=== PATIENT | female | born 2000 | race Caucasian/White ===

== ENCOUNTER 2022-04-09 19:46 | Emergency (ER) | payer OTHER, SELFPAY ==
--- NOTE | 2022-04-09 20:09 | HMH.EDUTC ---
[facility] [place] Disposition Clinical Impression: Viral syndrome Disposition: Home, Self-Care Condition on Discharge: Good Instructions: DI for COVID-19 (Suspected or Confirmed ), Preventing the Spread of Coronavirus Discharge Instructions Additional Instructions: Drink plenty of fluids. Take tylenol or ibuprofen for pain or fever. Take the medications as directed. Follow up with your regular doctor. GO TO THE ER FOR ANY WORSENING SYMPTOMS Quarantine until you know the results of your covid-19 test. Notify your school or workplace of your results and follow their instructions regarding return to work/school. Prescriptions: Ondansetron [Zofran 4mg ODT] 4 mg PO Q8HP PRN #12 tab PRN Reason: Nausea Transmission Status: Received by [id number] Benzonatate [Benzonatate 100mg cap] 100 mg PO TIDP PRN #30 cap PRN Reason: Cough [facility]: [id number] Referrals: Provider,Referral, [Primary Care Provider] - Time of Disposition: 20:39 Medical Decision Making - Medical Records Medical records reviewed: No: I reviewed the patient's medical records. - Dilip Inquiry Pt receiving controlled substance: No Vital Signs: 04/09/22 20:27 04/09/22 20:41 Temperature 97.4 F L 97.4 F L Temperature Source Oral Oral Pulse Rate 95 H Pulse Rate [Left Radial] 102 H Respiratory Rate 18 18 Blood Pressure 121/74 Blood Pressure [Right Arm] 123/81 Blood Pressure Mean [Right Arm] 95 02 Sat by Pulse Oximetry 93 L Oxygen Delivery Method Room Air Room Air - Lab Data Lab results reviewed: Yes: I reviewed the patient's lab results. Medical Decision Narrative: I rechecked her o2 sat and it is 98% [facility] [place] HPI - General Stated complaint: SOB,vomiting,cough Time Seen by Provider: 04/09/22 20:09 - History of Present Illness Provider Complaint: She states that she has felt bad since yesterday. She has had chest tightness, dry nonproductive cough, body aches, chills, low grade fever, n/v/d. She has been exposed to covid-19 within the past 5 days. - Related Data Previous Rx's Medication Instructions Recorded Benzonatate [Benzonatate 100mg 100 mg PO TIDP PRN #30 cap 07/20/22 cap] Ondansetron [Zofran 4mg ODT] 4 mg PO Q8HP PRN #12 tab 04/09/22 Allergies Allergy/AdvReac Type Severity Reaction Status Date / Time No Known Allergies Allergy Verified 04/09/22 20:29 [facility] History - Hepatitis A Screen Attestation statement:: This patient has been screened for Hepatitis A risk factors. I have reviewed the patient's past medical history: Yes ROS Obtained: Yes All systems reviewed & no additional complaints - Constitutional Constitutional: Reports as per HPI - Eyes Eyes: Denies eye discharge - ENT Ears, Nose, Mouth, and Throat: Reports as per HPI - Cardiovascular Cardiovascular: Denies chest pain - Respiratory Respiratory: Denies chest congestion, Reports cough Physical Exam - General General appearance: alert, in no apparent distress - Head Head exam: atraumatic, normocephalic, normal inspection - Eye Eye exam: Present: normal appearance, PERRL, EOMI - ENT ENT exam: Present: mucous membranes moist, normal external ear exam - Expanded ENT Exam TM/Canal exam: Bilateral TM: erythema, bulging Nose exam: Absent: sinus tenderness Nasal speculum exam: Bilateral: normal Throat exam: Present: tonsillar erythema - Neck Neck exam: Present: normal inspection, full ROM, trachea midline. Absent: meningismus, lymphadenopathy - Chest Chest inspection: Present: normal inspection, symmetric chest wall rise. Absent: tenderness - Respiratory Respiratory exam: Present: normal lung sounds bilaterally. Absent: respiratory distress - Cardiovascular Cardiovascular exam: Present: regular rate, normal rhythm. Absent: JVD - Abdominal Exam Abdominal exam: Present: soft, normal bowel sounds. Absent: distention, tenderness, gu
[2022-04-09 20:27] VITALS: BP 123/81; PULSE 102; RESP 18; TEMP 36.3; O2SAT 93; BMI 60.3
[2022-04-09 20:41] VITALS: BP 121/74; PULSE 95; RESP 18; TEMP 36.3; O2SAT 95
== END 2022-04-09 20:43 | disposition home or self-care (01) ==
PROVIDERS: Emergency Provider Nurse Practitioner Family
DX: Z20.822 Contact with and (suspected) exposure to COVID-19 (principal); B34.9 Viral infection, unspecified; R06.02 Shortness of breath; R11.10 Vomiting, unspecified; R05.9 Cough, unspecified
CPT/HCPCS: 99212; C9803; G0463; U0003; U0005

== ENCOUNTER 2022-04-17 12:42 | Emergency (ER) | payer OTHER, SELFPAY ==
[2022-04-17 12:41] VITALS: BP 151/84; PULSE 88; RESP 15; TEMP 36.7; O2SAT 97; BMI 60.3
--- NOTE | 2022-04-17 13:00 | PC.NURSE ---
RN to the bedside for triage and eval.
--- NOTE | 2022-04-17 13:15 | PC.NURSE ---
difficulty noted obtaining blood from pt. u/s machine at the bedside for u/s guided IV
[2022-04-17 13:30] VITALS: BP 142/70; PULSE 87; O2SAT 97
[2022-04-17 13:35] LABS: Microscopic, Urine URINE MICROSCOPIC (MICROSCOPIC)
[2022-04-17 13:37] LABS: Appearance,Urine TURBID (Clear); Blood, Urine 3+ (Negative); Color,Urine RED (Yellow); Glucose,Urine (UA) Negative (Negative); Ketones,Urine Negative (Negative); Leukocyte Esterase,Urine TRACE (Negative); Nitrate,Urine POSITIVE (Negative); Protein,Urine 2+ (Negative); Specific Gravity, Urine 1.025 (1.005-1.030)
[2022-04-17 13:44] LABS: Bilirubin,Urine 1+ (Negative)
--- NOTE | 2022-04-17 13:44 | PC.NURSE ---
MD at the bedside to evaluate pt
--- NOTE | 2022-04-17 13:44 | PC.NURSE ---
IV established and blood sent to the lab
--- NOTE | 2022-04-17 13:44 | HMH.EDABDPAI ---
ED Disposition Clinical Impression: Epigastric abdominal pain, Menstrual cramps UTI (urinary tract infection) Qualifiers: Urinary tract infection type: acute cystitis Hematuria presence: without hematuria Qualified Code(s): N30.00 - Acute cystitis without hematuria Disposition: Home, Self-Care Condition on Discharge: Good Instructions: Urinary Tract Infection, DI for Acute Abdominal Pain Additional Instructions: follow up as needed, return for worse Prescriptions: Nitrofurantoin Monohyd/M-Cryst [Macrobid 100 mg Capsule] 100 mg PO BID #14 cap Transmission Status: Received by [id number] Cefdinir [Omnicef 300mg Capsule] 300 mg PO BID #20 cap Transmission Status: Pending to [facility] Famotidine [Pepcid 20mg Tablet] 20 mg PO DAILY #15 tab Transmission Status: Received by [facility] Referrals: Provider,Referral, [Primary Care Provider] - - Critical Care Critical Care Time: No Attestation: On 04/17/22, the high probability of a clinically significant, sudden or life threatening deterioration of the following system(s) required my full and direct attention, intervention and personal management. The time I documented below is in addition to time spent performing reported procedures but includes the following listed in this critical care notation. Medical Decision Making - Medical Records Medical records reviewed: Yes: I reviewed the patient's medical records. - Dilip Inquiry Pt receiving controlled substance: No Vital Signs: 04/17/22 12:41 04/17/22 13:30 04/17/22 14:00 Temperature 98.0 F Temperature Source Oral Pulse Rate 87 81 Pulse Rate [Right Radial] 88 Respiratory Rate 15 Blood Pressure 142/70 H 138/79 Blood Pressure [Right Arm] 151/84 H Blood Pressure Mean [Right Arm] 106 Blood Pressure Source [Right Arm] Automatic Cuff Blood Pressure Position [Right Arm] Sitting 02 Sat by Pulse Oximetry 97 97 98 Oxygen Delivery Method Room Air 04/17/22 14:30 04/17/22 15:23 Temperature 98 F Temperature Source Pulse Rate 84 84 Pulse Rate [Right Radial] Respiratory Rate 16 Blood Pressure 140/80 142/82 H Blood Pressure [Right Arm] Blood Pressure Mean [Right Arm] Blood Pressure Source [Right Arm] Blood Pressure Position [Right Arm] 02 Sat by Pulse Oximetry 99 Oxygen Delivery Method Room Air - Lab Data Lab Results 04/17/22 13:28: Urine Color Red, Urine Appearance Turbid, Urine pH 7.0, Ur Specific Proctor 1.025, Urine Protein 2+, Urine Glucose (UA) Negative, Urine Ketones Negative, Urine Blood 3+, Urine Nitrate Positive, Urine Bilirubin 1+ A, Urine Urobilinogen 1.0, Ur Leukocyte Esterase Trace, Urine RBC 10-20, Urine WBC 3-5, Ur Squamous Epith Cells 3-5, Urine Bacteria 1+ 04/17/22 13:28: Urine HCG, Qual Negative 04/17/22 13:44: WBC 6.3, RBC 4.79, Hgb 12.4, Hct 39.5, MCV 82.5, MCH 25.9 L, MCHC 31.4 L, RDW 16.4, Plt Count 274, MPV 8.6, Neut % (Auto) 70.4, Lymph % (Auto) 22.3, Snyder % (Auto) 5.1, Eos % (Auto) 1.2, Baso % (Auto) 1.0, Neut # (Auto) 4.4, Lymph # (Auto) 1.4, Snyder # (Auto) 0.3, Eos # (Auto) 0.1, Baso # (Auto) 0.1 04/17/22 13:44: Sodium 141, Potassium 4.1, Chloride 107, Carbon Dioxide 26, Anion Gap 12.1, BUN 10, Creatinine 0.80, Estimated Creat Clear 89, Estimated GFR 91, Est GFR ( Amer) 111, Glucose 117 H, Calcium 9.5, Total Bilirubin 0.4, AST 49 H, ALT 71, Alkaline Phosphatase 75, Total Protein 8.1, Albumin 4.6, Globulin 3.5 H, Albumin/Globulin Ratio 1.3, Amylase 56, Lipase 68 Result diagrams: 04/17/22 13:44 04/17/22 13:44 Orders (Tests/Meds): ED MEDICATIONS Discontinued Medications Generic Name Dose Route Start Last Admin Trade Name Freq PRN Reason Stop Dose Admin Ondansetron HCl 8 mg 04/17/22 13:44 04/17/22 14:04 Ondansetron 4mg Odt SL 04/17/22 13:45 Not Given ONCE ONE Ondansetron HCl 8 mg 04/17/22 14:04 04/17/22 14:19 Ondansetron 4mg/2ml Vial IV 04/17/22 14:05 8 mg ONCE ONE Ad
[2022-04-17 13:52] LABS: Urine Pregnancy, HCG Qual. Negative (Negative)
[2022-04-17 13:55] LABS: Bacteria,Urine 1+ /lpf
[2022-04-17 13:56] LABS: Chloride 107 mmol/L (98-107); Potassium 4.1 mmoL/L (3.5-5.1); Sodium 141 mmol/L (136-145)
[2022-04-17 13:58] LABS: Amylase 56 U/L (30-110); Blood Urea Nitrogen 10 mg/dl (7-17); Creatinine Clearance Estimated 89 mL/min (50-200); Estimated Glomerular Filt Rate 91 ml/min (>60); GFR (African American) 111 ML/MIN (>60)
[2022-04-17 13:59] LABS: Alanine Aminotransferase 71 U/L (12-78); Albumin Level 4.6 g/dl (3.5-5.0); Albumin/Globulin Ratio 1.3 (1.1-1.8); Alkaline Phosphatase 75 U/L (38-126); Anion Gap 12.1 mEq/L (5-15); Aspartate Amino Transferase 49 U/L (14-36); Bilirubin,Total 0.4 mg/dl (0.2-1.3); Calcium 9.5 mg/dl (8.4-10.2); Carbon Dioxide 26 mmol/L (22.0-30.0); Globulin 3.5 g/dL (1.3-3.2); Glucose 117 mg/dl (74-100); Lipase 68 U/L (23-300); Total Protein,Serum 8.1 g/dl (6.3-8.2)
[2022-04-17 14:00] VITALS: BP 138/79; PULSE 81; O2SAT 98
[2022-04-17 14:03] LABS: Basophils # 0.1 K/mm3 (0-0.2); Eosinophils # 0.1 K/mm3 (0.0-0.4); Eosinophils % 1.2 % (0.1-12.0); Hematocrit 39.5 % (37.0-47.0); Hemoglobin 12.4 g/dL (12.2-16.2); Lymphocytes # 1.4 K/mm3 (0.7-4.5); Lymphocytes % 22.3 % (10-50); Mean Corpuscular HGB Conc 31.4 g/dL (31.8-35.4); Mean Corpuscular Hemoglobin 25.9 pg (27.0-31.2); Mean Corpuscular Volume 82.5 fl (81-99); Mean Platelet Volume 8.6 fl (7.4-10.4); Monocytes # 0.3 K/mm3 (0.1-1.0); Monocytes % 5.1 % (1.7-9.3); Neutrophils # 4.4 K/mm3 (1.8-7.8); Neutrophils % 70.4 % (37.0-80.0); Platelet Count 274 K/mm3 (142-424); Red Blood Count 4.79 M/mm3 (4.20-5.40); Red Cell Distribution Width 16.4 % (11.5-17.5); White Blood Count 6.3 K/mm3 (4.5-13.0)
--- NOTE | 2022-04-17 14:15 | PC.NURSE ---
rounded on pt at this time. updated on poc. no needs voiced by pt
[2022-04-17 14:30] VITALS: BP 140/80; PULSE 84; O2SAT 99
[2022-04-17 15:23] VITALS: BP 142/82; PULSE 84; RESP 16; TEMP 36.6; O2SAT 100
== END 2022-04-17 15:32 | disposition home or self-care (01) ==
PROVIDERS: Emergency Provider Emergency Medicine
DX: N30.00 Acute cystitis without hematuria (principal); R11.2 Nausea with vomiting, unspecified
CPT/HCPCS: 80053; 81001; 81025; 82150; 83690; 85025; 96374; 99284; J2405